=== PATIENT | female | born 1955 | race Caucasian/White ===

== ENCOUNTER 2018-02-14 10:54 | Emergency (ER) | payer BC, MEDICARE ==
[2018-02-14] MEDS ORDERED: ASPIRIN 81 MG CHEWABLE TABLET PO ONE (11:25)
--- NOTE | 2018-02-14 11:33 | Emergency Department Record ---
History of Present Illness - General Chief Complaint: Arrythmia/Palpitations Stated Complaint: HEART ARRHYTHMIA Time Seen by Provider: 02/14/18 11:06 Mode of Arrival: Ambulatory - History of Present Illness Initial Comments: patient felt irregular heart beat. Patient had 28 teeth removed 5 days ago by oral surgery. She had a fair amount of bleeding. She also tried provigel two days in a row and no sleep and she is not going to take it any more. MD Complaint: Irregular heart beat Onset/Timin -: Days(s) - Related Data Home Medications Medication Instructions Recorded Confirmed Last Taken Gabapentin [Neurontin] 100 mg PO TID 02/14/18 02/14/18 Unknown Omeprazole 20 mg PO BID 02/14/18 02/14/18 Unknown Previous Rx's Medication Instructions Recorded Ferrous Sulfate 325 mg PO DAILY #30 tab 02/14/18 Allergies Allergy/AdvReac Type Severity Reaction Status Date / Time Sulfa (Sulfonamide Allergy HYPERSENSIT Verified 02/14/18 11:12 Antibiotics) IVITY morphine AdvReac MIGRAINES Verified 02/14/18 11:12 Travel Screening - Travel/Exposure Within Last 30 Days Have you traveled within the last 30 days?: No Past Medical History - SOCIAL HISTORY Smoking Status: Never smoker Alcohol Use: None Drug Use: None - RESPIRATORY Hx Respiratory Disorders: No - CARDIOVASCULAR Hx Cardio Disorders: No - NEURO Hx Neuro Disorders: No Comment:: restless leg - GI Hx GI Disorders: Yes Hx Reflux: Yes - Hx Genitourinary Disorders: Yes Comment:: self cath 4 x day related to mesh surgery - ENDOCRINE Hx Endocrine Disorders: No - MUSCULOSKELETAL Hx Musculoskeletal Disorders: No - PSYCH Hx Psych Problems: Yes Hx Anxiety: Yes Hx Depression: Yes Comment:: executive function loss - HEMATOLOGY/ONCOLOGY Hx Hematology/Oncology Disorders: No Family Medical History Any Significant Family History?: Yes Hx Stroke: Father Course Vital Signs 02/14/18 11:01 Temperature 98.2 F Pulse Rate 84 Respiratory 20 Rate Blood Pressure 151/81 Pulse Ox 99 Medical Decision Making - Lab Data Result diagrams: 02/14/18 11:25 02/14/18 11:25 Disposition Clinical Impression: Palpitation Anemia Qualifiers: Anemia type: iron deficiency Iron deficiency anemia type: unspecified iron deficiency Qualified Code(s): D50.9 - Iron deficiency anemia, unspecified Disposition: Home, Self-Care Condition: (1) Good Instructions: Heart Palpitations (ED) Additional Instructions: take ferrous sulfate 325 mg one a day follow up with Dr. Mcarthur next week Prescriptions: Ferrous Sulfate 325 mg PO DAILY #30 tab Forms: Patient Portal Access Time of Disposition: 12:24 Quality - Quality Measures Quality Measures: N/A - Blood Pressure Screening Does Patient Have Any of the Following: No Blood Pressure Classification: Pre-Hypertensive BP Reading Systolic Measurement: 151 Diastolic Measurement: 81 Screening for High Blood Pressure: < Pre-Hypertensive BP, F/U Documented > [ G8950] Pre-Hypertensive Follow-up Interventions: Referral to alternative/primary care provider.
[2018-02-14 11:45] LABS: BASO % 0.6 % (0-6); EOS % 2.8 % (0-6); GRAN % 58.1 % (47-80); HEMATOCRIT 27.1 % (35.0-47.0); HEMOGLOBIN 8.2 gm/dl (11.6-16.0); LYMPH % 31.6 % (16-45); MEAN CELL VOLUME 83.6 fl (81-97); MEAN CORPUSCULAR HEMOGLOBIN 25.3 pg (27-33); MEAN CORPUSCULAR HGB CONC 30.3 g/dl (32-36); MEAN PLATELET VOLUME 9.9 fl (7.4-10.4); MONO % 6.9 % (0-9); PLATELET COUNT 317 K/uL (130-400); RED BLOOD COUNT 3.24 M/uL (3.80-5.40); RED CELL DISTRIBUTION WIDTH 16.8 % (11.5-14.5); WHITE BLOOD COUNT W/O DIFF 6.7 K/uL (4.2-12.2)
[2018-02-14 11:47] LABS: BLOOD UREA NITROGEN 16 mg/dL (8-23); CREATININE 0.6 mg/dL (0.5-0.9); EST GLOMERULAR FILTRATION RATE > 60 mL/min
[2018-02-14 11:50] LABS: GLUCOSE,RANDOM 85 mg/dL (74-109)
[2018-02-14 11:56] LABS: CKMB 2.4 ng/mL (<3.77)
== END 2018-02-14 12:39 | disposition home or self-care (01) ==
LOC: ER 10:54
DX: R00.2 Palpitations (principal); D50.9 Iron deficiency anemia, unspecified; K08.109 Complete loss of teeth, unspecified cause, unspecified class
CPT/HCPCS: 80048; 82553; 84443; 84484; 85025; 85730; 93005; 93010; 99284

== ENCOUNTER 2018-03-05 19:00 | Emergency (ER) | payer BC, MEDICARE ==
[2018-03-05] MEDS ORDERED: SODIUM CHLORIDE 0.9% 500 ML IV ONE (19:13)
--- NOTE | 2018-03-05 19:14 | Emergency Department Record ---
History of Present Illness - General Chief complaint: Weakness Stated complaint: WEAKNESS Time Seen by Provider: 03/05/18 19:01 Source: Patient Mode of Arrival: Ambulatory Limitations: No limitations - History of Present Illness Initial comments: 62 yo female presents with continued generalized weakness. She states she had a drop in her hemoglobin after an oral surgery procedure. Since the drop in hemoglobin she has been slow to regain her strength. She has been seen in the ED, her PCP's office and by a process validation engineer. Today she states she is frustrated that her strength is not returning and she has a trip planned to [place] this weekend. Her Hgb on 02/14 was 8.2. On 02/18 it was 8.3. Her iron studies indicated that she is iron deficient. The process validation engineer scheduled her next week and the following for iron infusions. No chest pain, syncope, or dyspnea. MD Complaint: Generalized weakness -: Week(s) Location: Generalized Severity: Moderate Quality: Other Consistency: Constant Improves with: Rest Worsens with: Other (activity) - Estephania Coma Scale Eye Response: (4) Open spontaneously Motor Response: (6) Obeys commands Verbal Response: (5) Oriented [place] Total: 15 - Related Data Previous Rx's Medication Instructions Recorded Ferrous Sulfate 325 mg PO DAILY #30 tab 02/14/18 Allergies Allergy/AdvReac Type Severity Reaction Status Date / Time Sulfa (Sulfonamide Allergy HYPERSENSIT Verified 02/14/18 11:12 Antibiotics) IVITY morphine AdvReac MIGRAINES Verified 02/14/18 11:12 Review of Systems Constitutional: Reports: Malaise, Weakness. Denies: Chills, Fever Eyes: Denies: Eye discharge ENT: Denies: Congestion, Throat pain Respiratory: Denies: Cough, Dyspnea, Hemoptysis, Stridor, Wheezes Cardiovascular: Denies: Chest pain, Palpitations, Syncope Endocrine: Reports: Fatigue. Denies: Polydipsia, Polyuria Gastrointestinal: Denies: Abdominal pain, Diarrhea, Nausea, Vomiting Genitourinary: Denies: Dysuria, Urgency Musculoskeletal: Denies: Arthralgia, Back pain, Joint swelling, Myalgia Skin: Denies: Bruising, Change in color, Rash Neurological: Reports: Weakness. Denies: Abnormal gait, Confusion, Headache, Numbness, Seizure, Tingling, Tremors, Vertigo Psychiatric: Denies: Anxiety Hematological/Lymphatic: Denies: Blood Clots, Easy bleeding, Easy bruising, Swollen glands Past Medical History - SOCIAL HISTORY Smoking Status: Never smoker Drug Use: None - RESPIRATORY Hx Respiratory Disorders: No - CARDIOVASCULAR Hx Cardio Disorders: No - NEURO Hx Neuro Disorders: No Comment:: restless leg - GI Hx GI Disorders: Yes Hx Reflux: Yes - Hx Genitourinary Disorders: Yes Comment:: self cath 4 x day related to mesh surgery - ENDOCRINE Hx Endocrine Disorders: No - MUSCULOSKELETAL Hx Musculoskeletal Disorders: No - PSYCH Hx Psych Problems: Yes Hx Anxiety: Yes Hx Depression: Yes Comment:: executive function loss - HEMATOLOGY/ONCOLOGY Hx Hematology/Oncology Disorders: No Family Medical History Hx Stroke: Father Physical Exam - General General Appearance: Alert, Oriented x3, Cooperative, No acute distress, Other ( Well appearing, no distress, very conversational) Limitations: No limitations - Head Head exam: Normal inspection - Eye Eye exam: Normal appearance, PERRL. negative: Conjunctival injection, Scleral icterus - ENT ENT exam: Normal exam Ear exam: Normal external inspection Nasal Exam: Normal inspection Mouth exam: Normal external inspection Teeth exam: Normal inspection - Neck Neck exam: Normal inspection, Full ROM. negative: Tenderness - Respiratory Respiratory exam: Normal lung sounds bilaterally. negative: Respiratory distress - Cardiovascular Cardiovascular Exam: Regular rate, Normal rhythm, Normal heart sounds Peripheral Pulses: 2+: Radial (R), Radial (L) - GI/Abdominal GI/Abdominal exam: Soft. negative: Tenderness - Rectal Rectal exam: Deferred - exam: Deferred - Extremities Extremities exam: Normal inspection, Full ROM, Normal capillary refill. negative: Tenderness - Back Back exam: Reports: Normal inspection, Full ROM. Denies: Muscle spasm, Rash noted, Tenderness - Neurological Neurological exam: Alert, Normal gait, Oriented X3 - Psychiatric Psychiatric exam: Normal affect, Normal mood - Skin Skin exam: Dry, Intact, Normal color, Warm Course Vital Signs 03/05/18 19:06 Pulse Rate [ 85 Pulse Ox Probe] Respiratory 18 Rate Blood Pressure 143/84 [Left Arm] Pulse Ox 97 - Reevaluation(s) Reevaluation #1: 02/04/18 EMR reviewed Vitals reviewed No acute abnormalities EKG NSR rate 75, intervals normal, axis normal, ST normal. No changes from 10/22 or 02/14/18 03/05/18 19:15 03/05/18 19:40 The Hgb on today's visit is 8.8 which is trending upward now that she is on iron 03/05/18 19:42 03/05/18 19:56 The troponin is normal She has a slowing up trending Hgb. Her vitals are normal She was reassured of the results and continued outpatient treatment of her iron deficient anemia Medical Decision Making - Lab Data Result diagrams: 03/05/18 19:15 03/05/18 19:15 Disposition Disposition: Discharge Clinical Impression: Anemia Disposition: Home, Self-Care Condition: (1) Good Instructions: Iron Rich Diet (ED), Iron Deficiency Anemia (ED), Weakness (ED) Additional Instructions: Call your doctor for close follow up tomorrow to discuss your blood tests Return to be rechecked if you have any concerns Continue your iron as directed Forms: Patient Portal Access Time of Disposition: 19:58 Quality - Quality Measures Quality Measures: N/A - Blood Pressure Screening Does Patient Have Any of the Following: No Blood Pressure Classification: Pre-Hypertensive BP Reading Systolic Measurement: 143 Diastolic Measurement: 84 Screening for High Blood Pressure: < Pre-Hypertensive BP, F/U Documented > [ G8950] Pre-Hypertensive Follow-up Interventions: Referral to alternative/primary care provider.
[2018-03-05 19:26] LABS: BASO % 0.6 % (0-6); EOS % 3.6 % (0-6); GRAN % 51.4 % (47-80); HEMOGLOBIN 8.8 gm/dl (11.6-16.0); LYMPH % 36.3 % (16-45); MEAN CELL VOLUME 82.2 fl (81-97); MEAN CORPUSCULAR HEMOGLOBIN 24.1 pg (27-33); MEAN CORPUSCULAR HGB CONC 29.3 g/dl (32-36); MEAN PLATELET VOLUME 8.9 fl (7.4-10.4); MONO % 8.1 % (0-9); PLATELET COUNT 440 K/uL (130-400); RED BLOOD COUNT 3.65 M/uL (3.80-5.40); RED CELL DISTRIBUTION WIDTH 15.8 % (11.5-14.5); WHITE BLOOD COUNT W/O DIFF 8.4 K/uL (4.2-12.2)
[2018-03-05 19:30] LABS: BILIRUBIN,TOTAL < 0.20 mg/dL (0.2-1.0); BLOOD UREA NITROGEN 20 mg/dL (8-23); CREATININE 0.6 mg/dL (0.5-0.9); EST GLOMERULAR FILTRATION RATE > 60 mL/min
[2018-03-05 19:31] LABS: TOTAL PROTEIN 7.3 g/dL (6.6-8.7)
[2018-03-05 19:33] LABS: GLUCOSE,RANDOM 93 mg/dL (74-109)
[2018-03-05 19:36] LABS: ALB/GLOB RATIO 1.3 (1.1-1.8); ALBUMIN 4.1 g/dL (4.0-5.0); ALKALINE PHOSPHATASE 115 U/L (35-104); ALT/SGPT 13 U/L (<33); AST/SGOT 22 U/L (10.0-35.0)
[2018-03-05 20:19] LABS: ABO GROUP O; ANTIBODY SCREEN NEGATIVE (NEGATIVE); RH TYPE POSITIVE
[2018-03-05 20:49] LABS: THYROID STIMULATING HORMONE 1.98 uIU/mL (0.270-4.20)
== END 2018-03-05 20:09 | disposition home or self-care (01) ==
LOC: ER 19:00
DX: D50.9 Iron deficiency anemia, unspecified (principal); R53.1 Weakness
CPT/HCPCS: 80053; 84443; 84484; 85025; 86850; 86900; 86901; 93005; 93010; 99284

== ENCOUNTER 2018-07-25 16:44 | Emergency (ER) | payer BC, MEDICARE ==
[2018-07-25] MEDS ORDERED: DIPHENHYDRAMINE HCL 50 MG/ML VIAL IVP ONE (17:17)
[2018-07-25] MEDS ORDERED: EPINEPHRINE 1 MG/ML AMPUL IM ONE (17:22)
--- NOTE | 2018-07-25 17:58 | Emergency Department Record ---
History of Present Illness - General Chief complaint: Allergic Reaction Stated complaint: REACTION, MOUTH IS SORE Time Seen by Provider: 07/25/18 17:17 Source: Patient Mode of Arrival: Ambulatory Limitations: No limitations - History of Present Illness Initial Comments: pt started taking cipro yesterday and broke out in a rash that itches on face and upper body. she has swelling of her tongue and her lips burn no sob MD Complaint: Allergic reaction, Facial swelling Onset/Timin -: Hour(s) Exposure: Medication Symptoms: Itching, Rash, Facial swelling, Hoarseness Severity: Moderate Treatment Prior to Arrival: Steroids Previous Allergy History: None - Related Data Previous Rx's Medication Instructions Recorded Ferrous Sulfate 325 mg PO DAILY #30 tab 02/14/18 Allergies Allergy/AdvReac Type Severity Reaction Status Date / Time ciprofloxacin [From Cipro] Allergy SWELLING Verified 07/25/18 19:10 OF THE FACE Sulfa (Sulfonamide Allergy HYPERSENSIT Verified 07/25/18 16:58 Antibiotics) IVITY morphine AdvReac MIGRAINES Verified 07/25/18 19:10 Travel Screening - Travel/Exposure Within Last 30 Days Have you traveled within the last 30 days?: No - Travel/Exposure Within Last Year Have you traveled outside the [place] in the last year?: No - Additonal Travel Details Have you been exposed to anyone with a communicable illness?: No - Travel Symptoms Symptom Screening: None Review of Systems Reviewed: No additional complaints except as noted below Constitutional: Reports: As per HPI. Denies: Chills, Fever, Malaise, Night sweats, Weakness, Weight change Eyes: Reports: As per HPI. Denies: Eye discharge, Eye pain, Photophobia, Vision change ENT: Reports: As per HPI. Denies: Congestion, Dental pain, Ear pain, Epistaxis , Hearing loss, Throat pain Respiratory: Reports: As per HPI. Denies: Cough, Dyspnea, Hemoptysis, Stridor, Wheezes Cardiovascular: Reports: As per HPI. Denies: Arrhythmia, Chest pain, Dyspnea on exertion, Edema, Murmurs, Orthopnea, Palpitations, Paroxysmal nocturnal dyspnea, Rheumatic Fever, Syncope Endocrine: Reports: As per HPI. Denies: Fatigue, Heat or cold intolerance, Polydipsia, Polyuria Gastrointestinal: Reports: As per HPI. Denies: Abdominal pain, Constipation, Diarrhea, Hematemesis, Hematochezia, Melena, Nausea, Vomiting Genitourinary: Reports: As per HPI. Denies: Abnormal menses, Discharge, Dyspareunia, Dysuria, Frequency, Hematuria, Incontinence, Retention, Urgency Musculoskeletal: Reports: As per HPI. Denies: Arthralgia, Back pain, Gout, Joint swelling, Myalgia, Neck pain Skin: Reports: As per HPI. Denies: Bruising, Change in color, Change in hair/ nails, Lesions, Pruritus, Rash Neurological: Reports: As per HPI. Denies: Abnormal gait, Confusion, Headache, Numbness, Paresthesias, Seizure, Tingling, Tremors, Vertigo, Weakness Psychiatric: Reports: As per HPI. Denies: Anxiety, Auditory hallucinations, Depression, Homicidal thoughts, Suicidal thoughts, Visual hallucinations Hematological/Lymphatic: Reports: As per HPI. Denies: Anemia, Blood Clots, Easy bleeding, Easy bruising, Swollen glands Past Medical History - SOCIAL HISTORY Smoking Status: Never smoker Alcohol Use: None Drug Use: None - RESPIRATORY Hx Respiratory Disorders: No - CARDIOVASCULAR Hx Cardio Disorders: No - NEURO Hx Neuro Disorders: No Comment:: restless leg - GI Hx GI Disorders: Yes Hx Reflux: Yes - Hx Genitourinary Disorders: Yes Comment:: self cath 4 x day related to mesh surgery - ENDOCRINE Hx Endocrine Disorders: No - MUSCULOSKELETAL Hx Musculoskeletal Disorders: No - PSYCH Hx Psych Problems: Yes Hx Anxiety: Yes Hx Depression: Yes Comment:: executive function loss - HEMATOLOGY/ONCOLOGY Hx Hematology/Oncology Disorders: No Family Medical History Any Significant Family History?: Yes Hx Stroke: Father Physical Exam - General General Appearance: Alert, Oriented x3, Cooperative, Mild distress - Head Head exam: Normal inspection - Eye Eye exam: Normal appearance, PERRL, EOMI Pupils: Normal accommodation - ENT ENT exam: Normal exam, Mucous membranes moist, Normal external ear exam, Normal orophraynx Ear exam: Normal external inspection. negative: External canal tenderness Nasal Exam: Normal inspection. negative: Discharge, Sinus tenderness Mouth exam: Normal external inspection, Muffled voice, Tongue elevation Teeth exam: Normal inspection. negative: Dental caries Throat exam: Normal inspection, Other (no posterior swelling). negative: Tonsillar erythema, Tonsillar exudate - Neck Neck exam: Normal inspection, Full ROM. negative: Tenderness - Respiratory Respiratory exam: Normal lung sounds bilaterally. negative: Respiratory distress - Cardiovascular Cardiovascular Exam: Regular rate, Normal rhythm, Normal heart sounds - GI/Abdominal GI/Abdominal exam: Soft, Normal bowel sounds. negative: Tenderness - Rectal Rectal exam: Deferred - exam: Deferred - Extremities Extremities exam: Normal inspection, Full ROM, Normal capillary refill. negative: Tenderness - Back Back exam: Reports: Normal inspection, Full ROM. Denies: Muscle spasm, Rash noted, Tenderness - Neurological Neurological exam: Alert, CN II-XII intact, Normal gait, Oriented X3 - Psychiatric Psychiatric exam: Normal affect, Normal mood - Skin Skin exam: Dry, Intact, Normal color, Warm Course Vital Signs 07/25/18 07/25/18 16:53 17:49 Temperature 98.9 F Pulse Rate [ 94 H 79 Pulse Ox Probe] Respiratory 17 18 Rate Blood Pressure 124/77 125/77 [Left Arm] Pulse Ox 98 97 - Reevaluation(s) Reevaluation #1: 07/25/18 19:09 pt is doing better Medical Decision Making - Lab Data Result diagrams: 07/25/18 17:08 07/25/18 17:08 Disposition Disposition: Discharge Clinical Impression: Allergic reaction caused by a drug Qualifiers: Encounter type: initial encounter Qualified Code(s): T78.40XA - Allergy, unspecified, initial encounter Disposition: Home, Self-Care Condition: (1) Good Instructions: Antibiotic Medication Allergy (ED) Additional Instructions: follow up with family doctor. return sooner if worse. continue benadryl every 6 hrs as needed. do not take fluoroquinolones antibiotics again such as cipro or levaquin Forms: Patient Portal Access Quality - Quality Measures Quality Measures: N/A - Blood Pressure Screening Does Patient Have Any of the Following: No Blood Pressure Classification: Normal BP Reading Systolic Measurement: 114 Diastolic Measurement: 74 Screening for High Blood Pressure: < Normal BP, F/U Not Required > [G8783]
[2018-07-25 18:27] LABS: BASO % 0.4 % (0-6); GRAN % 76.5 % (47-80); HEMATOCRIT 40.8 % (35.0-47.0); LYMPH % 14.9 % (16-45); MEAN CELL VOLUME 88.5 fl (81-97); MEAN CORPUSCULAR HEMOGLOBIN 28.2 pg (27-33); MEAN CORPUSCULAR HGB CONC 31.9 g/dl (32-36); MEAN PLATELET VOLUME 10.2 fl (7.4-10.4); MONO % 3.2 % (0-9); PLATELET COUNT 265 K/uL (130-400); RED BLOOD COUNT 4.61 M/uL (3.80-5.40); RED CELL DISTRIBUTION WIDTH 13.7 % (11.5-14.5); WHITE BLOOD COUNT W/O DIFF 9.5 K/uL (4.2-12.2)
[2018-07-25 18:36] LABS: BLOOD UREA NITROGEN 20 mg/dL (8-23)
[2018-07-25 18:37] LABS: CREATININE 0.7 mg/dL (0.5-0.9); EST GLOMERULAR FILTRATION RATE > 60 mL/min
[2018-07-25 18:39] LABS: GLUCOSE,RANDOM 125 mg/dL (74-109)
[2018-07-25] MEDS ORDERED: POTASSIUM CHLORIDE 20 MEQ TABLET PO ONE (19:08)
[2018-07-25 19:11] LABS: ERYTHROCYTE SEDIMENTATION RATE 13 mm/hr (0-30)
[2018-07-25 19:49] LABS: URINE APPEARANCE SL CLOUDY; URINE BILIRUBIN NEGATIVE (NEGATIVE); URINE BLOOD TRACE-I (NEGATIVE); URINE COLOR YELLOW; URINE GLUCOSE (UA) NEGATIVE (NEGATIVE); URINE KETONE NEGATIVE (NEGATIVE); URINE LEUKOCYTE ESTERASE TRACE (NEGATIVE); URINE NITRITE POSITIVE (NEGATIVE); URINE PROTEIN NEGATIVE (NEGATIVE); URINE UROBILINOGEN 0.2 E.U./dL (0.20 - 1.00)
[2018-07-25 19:55] LABS: URINE BACTERIA 4+; URINE EPITHELIAL CELLS 0 - 2 (FEW); URINE RBC 0 - 2 (NONE SEEN)
== END 2018-07-25 19:46 | disposition home or self-care (01) ==
LOC: ER 16:44
DX: L27.1 Localized skin eruption due to drugs and medicaments taken internally (principal); R22.0 Localized swelling, mass and lump, head; T36.8X5A Adverse effect of other systemic antibiotics, initial encounter; N39.0 Urinary tract infection, site not specified
CPT/HCPCS: 80048; 81001; 85025; 85651; 96372; 96374; 99284; J0171; J1200

== ENCOUNTER 2018-08-23 21:04 | Emergency (ER) | payer BC, MEDICARE ==
--- NOTE | 2018-08-23 21:29 | Emergency Department Record ---
History of Present Illness - General Chief Complaint: Chest Pain Stated Complaint: CHEST PAIN Time Seen by Provider: 08/23/18 21:09 Source: Patient Mode of Arrival: Ambulatory Limitations: No limitations - History of Present Illness Initial Comments: 62 yo female presents to ED for evaluation of dyspnea and fatigue symptoms for the past several days. Patient reports that she was cleaning bird cages in preparation for a bird show and was up for 36 hours prior to her symptoms beginning. Patient denies previous heart or lung problems, denies health problems at her baseline. Patient does report getting her influenza vaccination this year as well. Patient reports that she is so weak that she cannot lift her bird cages (20 lbs) at home. Onset/Timin -: Days(s) Severity: Moderate Severity scale (1-10): 2 Consistency: Constant Improves With: Rest Worsens With: Exertion Known History Of: Other Associated Symptoms: Denies other symptoms Treatments Prior to Arrival: None - Related Data Home Oxygen Therapy: No Home Medications Medication Instructions Recorded Confirmed Last Taken Dextroamphetamine/Amphetamine 10 mg PO BID 08/23/18 08/23/18 Unknown [Adderall] Previous Rx's Medication Instructions Recorded RX: Ferrous Sulfate 325 mg PO DAILY #30 tab 02/14/18 RX: Doxycycline Hyclate 100 mg PO BID #16 tab 08/23/18 Allergies Allergy/AdvReac Type Severity Reaction Status Date / Time ciprofloxacin [From Cipro] Allergy SWELLING Verified 07/25/18 19:10 OF THE FACE Sulfa (Sulfonamide Allergy HYPERSENSIT Verified 07/25/18 16:58 Antibiotics) IVITY morphine AdvReac MIGRAINES Verified 07/25/18 19:10 Travel Screening - Travel/Exposure Within Last 30 Days Have you traveled within the last 30 days?: No - Travel Symptoms Symptom Screening: None Review of Systems Constitutional: Reports: Malaise, Weakness. Denies: Chills, Fever, Night sweats Eyes: Denies: Eye discharge, Eye pain ENT: Denies: Congestion, Ear pain, Epistaxis Respiratory: Reports: Dyspnea. Denies: Cough, Hemoptysis Cardiovascular: Reports: Chest pain, Dyspnea on exertion. Denies: Palpitations Endocrine: Denies: Fatigue, Heat or cold intolerance Gastrointestinal: Denies: Abdominal pain, Nausea, Vomiting Genitourinary: Denies: Incontinence, Retention Musculoskeletal: Reports: Myalgia. Denies: Arthralgia, Back pain, Gout, Joint swelling Skin: Denies: Bruising, Change in color Neurological: Denies: Abnormal gait, Confusion, Headache, Seizure Psychiatric: Denies: Anxiety Hematological/Lymphatic: Denies: Anemia, Blood Clots Past Medical History - SOCIAL HISTORY Smoking Status: Never smoker - RESPIRATORY Hx Respiratory Disorders: Yes Hx Sleep Apnea: Yes Hx of CPAP: Yes - CARDIOVASCULAR Hx Cardio Disorders: No - NEURO Hx Neuro Disorders: Yes Hx Headaches: Yes Comment:: restless leg - GI Hx GI Disorders: Yes Hx Reflux: Yes - Hx Genitourinary Disorders: Yes Comment:: self cath 4 x day related to mesh surgery - ENDOCRINE Hx Endocrine Disorders: No - MUSCULOSKELETAL Hx Musculoskeletal Disorders: No - PSYCH Hx Psych Problems: Yes Hx Anxiety: Yes Hx Depression: Yes Comment:: executive function loss - HEMATOLOGY/ONCOLOGY Hx Hematology/Oncology Disorders: No Family Medical History Any Significant Family History?: Yes Hx Stroke: Father Physical Exam - General General Appearance: Alert, Oriented x3, Cooperative, Moderate distress Limitations: No limitations - Head Head exam: Atraumatic, Normocephalic, Normal inspection Head exam detail: negative: Abrasion, Contusion, Thorne's sign, General tenderness, Hematoma, Laceration - Eye Eye exam: Normal appearance. negative: Conjunctival injection, Periorbital swelling, Periorbital tenderness, Scleral icterus - ENT Ear exam: negative: Auricular hematoma, Auricular trauma Nasal Exam: negative: Active bleeding, Discharge, Dried blood, Foreign body Mouth exam: negative: Drooling, Laceration, Muffled voice, Tongue elevation - Neck Neck exam: Normal inspection. negative: Meningismus, Tenderness - Respiratory Respiratory exam: Normal lung sounds bilaterally. negative: Rales, Respiratory distress, Rhonchi, Stridor - Cardiovascular Cardiovascular Exam: Regular rate, Normal rhythm, Normal heart sounds - GI/Abdominal GI/Abdominal exam: Soft. negative: Rebound, Rigid, Tenderness - Rectal Rectal exam: Deferred - exam: Deferred - Extremities Extremities exam: Calf tenderness. negative: Pedal edema - Back Back exam: Denies: CVA tenderness (R), CVA tenderness (L) - Neurological Neurological exam: Alert, Oriented X3 - Psychiatric Psychiatric exam: Normal affect, Normal mood - Skin Skin exam: Normal color. negative: Abrasion Type of lesion: negative: abrasion Course Vital Signs 08/23/18 21:10 Temperature 97.9 F Pulse Rate [ 82 Pulse Ox Probe] Respiratory 20 Rate Blood Pressure 121/89 [Left Arm] Pulse Ox 98 - Reevaluation(s) Reevaluation #1: 08/23/18 21:27 Patient was seen and examined, will initiate cardiac/PE evaluation vs. pericarditis vs. atypical pneumonia (psittacosis from bird cages). Will administer IVFs and reassess. EKG: NSR 84 Normal axis, normal intervals Diffuse concave ST elevation WITHOUT reciprocal changes ? pericarditis (no SC depression, less likely) vs. early repolarization. Reevaluation #2: 08/23/18 21:51 Laboratory studies were reviewed and are grossly unremarkable for an acute process. D-Dimer negative. CK reported to be 215 Influenza negative. CXR and CT Brain ordered for evaluation of RAY and vertigo/weakness symptoms. Patient was updated on results thus far. Reevaluation #3: 08/23/18 22:34 CXR: Negative CT Brain: No acute process Reevaluation #4: 08/23/18 22:44 CT Brain: No acute process Patient was updated on all results, patient reports that her symptoms are starting to improved. Discussed admission for further evaluation, patient declined stating that she would prefer to go home and rest. Will discharge home with treatment for possible early atypical Pneumonia with Doxycycline. Patient agrees with the plan as discussed and verbalizes understanding to return for any worsening of her symptoms. Medical Decision Making - Lab Data Result diagrams: 08/23/18 21:23 08/23/18 21:23 Disposition Disposition: Discharge Clinical Impression: Pleuritic chest pain Disposition: Home, Self-Care Condition: (2) Stable Instructions: Pleurisy (ED) Additional Instructions: Return to ED if your symptoms worsen or if you have any concerns. Doxycycline 200 mg BID for 3 days, then 100 mg BID for 3 days. Follow-up with your family doctor in 1-3 days as directed. Prescriptions: RX: Doxycycline Hyclate 100 mg PO BID #16 tab.dr Forms: Patient Portal Access Time of Disposition: 23:04 Quality - Quality Measures Quality Measures: N/A - Blood Pressure Screening Does Patient Have Any of the Following: No Blood Pressure Classification: Pre-Hypertensive BP Reading Systolic Measurement: 103 Diastolic Measurement: 80 Screening for High Blood Pressure: < Pre-Hypertensive BP, F/U Documented > [ G9465] Pre-Hypertensive Follow-up Interventions: Referral to alternative/primary care provider.
[2018-08-23] MEDS ORDERED: 0.9 % SODIUM CHLORIDE 1000ML 1,000 ML IV SCH (21:30)
[2018-08-23 21:35] LABS: BASO % 0.3 % (0-6); EOS % 0.9 % (0-6); GRAN % 67.7 % (47-80); HEMATOCRIT 38.7 % (35.0-47.0); HEMOGLOBIN 12.1 gm/dl (11.6-16.0); LYMPH % 21.9 % (16-45); MEAN CELL VOLUME 92.6 fl (81-97); MEAN CORPUSCULAR HEMOGLOBIN 28.9 pg (27-33); MEAN CORPUSCULAR HGB CONC 31.3 g/dl (32-36); MEAN PLATELET VOLUME 9.8 fl (7.4-10.4); MONO % 9.2 % (0-9); PLATELET COUNT 249 K/uL (130-400); RED BLOOD COUNT 4.18 M/uL (3.80-5.40); RED CELL DISTRIBUTION WIDTH 14.9 % (11.5-14.5); WHITE BLOOD COUNT W/O DIFF 8.8 K/uL (4.2-12.2)
[2018-08-23 21:47] LABS: BLOOD UREA NITROGEN 16 mg/dL (8-23); CREATININE 0.6 mg/dL (0.5-0.9); EST GLOMERULAR FILTRATION RATE > 60 mL/min
[2018-08-23 21:50] LABS: INFLUENZA A NEGATIVE (NEGATIVE); INFLUENZA B NEGATIVE (NEGATIVE)
[2018-08-23 21:50] LABS: GLUCOSE,RANDOM 158 mg/dL (74-109)
[2018-08-23 21:53] LABS: ALB/GLOB RATIO 1.3 (1.1-1.8); ALBUMIN 3.9 g/dL (4.0-5.0); ALKALINE PHOSPHATASE 97 U/L (35-104); ALT/SGPT 20 U/L (<33); AST/SGOT 25 U/L (10.0-35.0); CREATINE PHOSPHOKINASE 215 U/L (26-192)
[2018-08-23] MEDS ORDERED: DOXYCYCLINE HYCLATE 100 MG CAPSULE PO ONE (23:04)
--- NOTE | 2018-08-25 14:50 | RADIOLOGY REPORT ---
EXAM: CHEST, TWO VIEWS HISTORY: CHEST PAIN, DIFFICULTY BREATHING, AND VERTIGO. TECHNIQUE: PA and lateral upright views of the chest were obtained. Comparison: 08/08/11. FINDINGS: The heart, mediastinum, and pulmonary vasculature are normal. The lungs are clear. There is no pneumothorax or effusion. The bones appear intact. IMPRESSION: NO ACUTE CHEST PATHOLOGY. JOB NUMBER: [id number] MTDD
--- NOTE | 2018-08-25 14:53 | CT SCAN REPORT ---
EXAM: CT SCAN OF THE BRAIN WITHOUT CONTRAST HISTORY: VERTIGO AND SLIGHT SLURRED SPEECH. POSTERIOR UPPER NECK PAIN AND HEADACHE FOR THE PAST THREE DAYS. DIFFICULTY BREATHING. TECHNIQUE: Standard CT imaging of the brain was performed in the axial plane without contrast. Comparison: 02/13/10. FINDINGS: The ventricles and subarachnoid spaces are normal. There is no mass , mass effect, intracranial hemorrhage, visible acute infarct, or abnormal extraaxial fluid. The skull is intact. The orbits and sinuses are normal. There is a tiny amount of nonspecific fluid within the left mastoid air cells. The right mastoid air cells are clear. IMPRESSION: 1. NO ACUTE INTRACRANIAL ABNORMALITY. 2. MINOR NONSPECIFIC FLUID WITHIN THE LEFT MASTOID AIR CELLS. JOB NUMBER: [id number] MTDD
== END 2018-08-23 23:16 | disposition home or self-care (01) ==
LOC: ER 21:04
DX: R07.1 Chest pain on breathing (principal); R06.00 Dyspnea, unspecified; R53.83 Other fatigue; R42 Dizziness and giddiness
CPT/HCPCS: 70450; 71046; 80053; 82550; 84484; 85025; 85379; 87400; 93005; 93010; 99284; J7030